=== PATIENT | female | born 1950 | race Caucasian/White ===

== ENCOUNTER 2019-07-24 12:59 | Inpatient (IN) ==
[2019-07-24] MEDS ORDERED: *HR* FentaNYL (PF) 100 MCG/2 ML VIAL IVP ONE (15:08)
[2019-07-24] MEDS ORDERED: Ondansetron 4 MG/2 ML VIAL IVP ONE (15:09)
[2019-07-24] MEDS ORDERED: Naloxone 0.4 MG/ML INJ IVP PRN (16:06)
[2019-07-24] MEDS ORDERED: Ondansetron 4 MG/2 ML VIAL IVP PRN (16:06)
[2019-07-24] MEDS ORDERED: *HR* OxyCODONE/APAP 5/325 TABLET PO PRN (16:37)
[2019-07-24] MEDS ORDERED: *HR* HYDROmorphone (PF) 1 MG/ML SYRINGE IVP ONE (16:58)
[2019-07-25 08:11] LABS: Basophils % 0.6 %; Eosinophils % 0.4 %; Hematocrit 41.6 % (35.3-44.9); Immature Granulocytes % 0.3 % (0-4); Lymphocytes # 2.6 K/mcL (0.6-4.6); Lymphocytes % 35.6 %; Mean Corpuscular HGB Conc 31.7 g/dL (31.6-35.5); Mean Corpuscular Hemoglobin 29.8 pg (28.0-33.3); Mean Corpuscular Volume 93.9 fL (83.0-100.0); Mean Platelet Volume 10.5 fL (9.4-12.4); Monocytes # 0.8 K/mcL (0.0-1.3); Monocytes % 10.7 %; Neutrophils # 3.8 K/mcL (1.6-8.9); Platelet Count 200 K/mcL (140-400); Red Blood Count 4.43 M/mcL (3.82-4.97); Segmented Neutrophils % 52.4 %; White Blood Count 7.2 K/mcL (4.3-11.1)
[2019-07-25 08:26] LABS: BUN/Creatinine Ratio 13 (6-26); Blood Urea Nitrogen 9 mg/dL (8-23); Calcium 9.2 mg/dL (8.6-10.3); Carbon Dioxide 26 mEq/L (23-29); Chloride 105 mEq/L (98-107); Glucose 96 mg/dL (70-105); Magnesium 2.1 mg/dL (1.6-2.6); Osmolality,Calculated 285 (280-300); Phosphorous 3.5 mg/dL (2.7-4.5); Potassium 3.8 mEq/L (3.5-5.1); Sodium 138 mEq/L (136-145); eGFR For African Americans > 60 (> 60); eGFR For Non-African Americans > 60 (> 60)
[2019-07-25] MEDS ORDERED: *HR* FentaNYL (PF) 100 MCG/2 ML VIAL ONE (08:42)
[2019-07-25] MEDS ORDERED: *HR* Propofol 200 MG/20 ML VIAL IVP ONE (08:42)
[2019-07-25] MEDS ORDERED: Dexamethasone 4 MG/ML VIAL ONE (08:42)
[2019-07-25] MEDS ORDERED: Ondansetron 4 MG/2 ML VIAL ONE (08:42)
[2019-07-25] MEDS ORDERED: *HR* Succinylcholine 200 MG/10 ML VIAL IVP ONE (08:42)
[2019-07-25] MEDS ORDERED: Lidocaine -MPF 2% 2 ML VIAL ONE (08:42)
[2019-07-25] MEDS ORDERED: lisinopriL 10 MG TABLET PO SCH (09:00)
[2019-07-25] MEDS ORDERED: Lidocaine HCL 4 ML Topical Solution (Laryng-O-Jet Kit Sterile Pak) TP ONE (09:48)
[2019-07-25] MEDS ORDERED: Acetaminophen IV 1,000 MG/100 ML INFUS..BTL ONE (09:55)
[2019-07-25] MEDS ORDERED: *HR* Midazolam HCl 2 MG/2 ML VIAL ONE (09:56)
[2019-07-25] MEDS ORDERED: *HR* HYDROmorphone PF 0.5 MG/0.5 ML SYRINGE IVP PRN (10:11)
[2019-07-25] MEDS ORDERED: *HR* Promethazine 25 MG/ML VIAL IVP PRN (10:11)
[2019-07-25] MEDS ORDERED: Ondansetron 4 MG/2 ML VIAL IVP ONE (10:11)
[2019-07-25] MEDS ORDERED: *HR* OxyCODONE Immed Rel 5 MG TABLET PO PRN ×2 (10:11→13:02)
[2019-07-25] MEDS ORDERED: Ethanol\\Acetic Acid\\Na Ace\\Ben 1,000 ML IRRIG.SOLN IR ONE (10:29)
[2019-07-25 10:34] LABS: Hematocrit 41.8 % (35.3-44.9); Hemoglobin 13.5 g/dL (11.5-15.4)
[2019-07-25 10:39] LABS: Hemoglobin 13.2 g/dL (11.5-15.4)
[2019-07-25] MEDS ORDERED: EPHEDrine 50 MG/ML VIAL ONE (10:43)
[2019-07-25] MEDS ORDERED: *HR* HYDROMORPHONE 2 MG/ML VIAL ONE (10:55)
[2019-07-25] MEDS ORDERED: Ringers Solution, Lactated 1,000 ML ONE (12:02)
[2019-07-25] MEDS ORDERED: MOM Conc 10 ML UD.LIQ PO PRN (13:02)
[2019-07-25] MEDS ORDERED: Naloxone 0.4 MG/ML INJ IVP PRN (13:02)
[2019-07-25] MEDS ORDERED: *HR* OxyCODONE/APAP 5/325 TABLET PO PRN (13:02)
[2019-07-25] MEDS ORDERED: Ondansetron 4 MG/2 ML VIAL IVP PRN (13:02)
[2019-07-25] MEDS ORDERED: Sennosides 8.6 MG TABLET PO PRN (13:02)
[2019-07-25] MEDS: ceFAZolin 2,000 MG in 0.9 % Sodium Chloride 100 ML IVPB SCH (18:08)
[2019-07-25] MEDS: Ringers Solution, Lactated 1,000 ML IVC SCH (20:13)
[2019-07-26] MEDS: ceFAZolin 2,000 MG in 0.9 % Sodium Chloride 100 ML IVPB SCH (02:01)
[2019-07-26] MEDS: Ringers Solution, Lactated 1,000 ML IVC SCH (02:47)
[2019-07-26 05:12] LABS: Hematocrit 38.1 % (35.3-44.9); Hemoglobin 12.2 g/dL (11.5-15.4)
[2019-07-26 05:32] LABS: BUN/Creatinine Ratio 10 (6-26); Blood Urea Nitrogen 6 mg/dL (8-23); Calcium 9.4 mg/dL (8.6-10.3); Carbon Dioxide 27 mEq/L (23-29); Chloride 104 mEq/L (98-107); Glucose 113 mg/dL (70-105); Osmolality,Calculated 282 (280-300); Potassium 3.8 mEq/L (3.5-5.1); Sodium 137 mEq/L (136-145); eGFR For African Americans > 60 (> 60); eGFR For Non-African Americans > 60 (> 60)
[2019-07-26 06:50] VITALS: BP 147/80
[2019-07-26] MEDS ORDERED: lisinopriL 10 MG TABLET PO SCH (09:00)
== END 2019-07-26 11:54 | disposition home or self-care (01) | DRG 494 ==
LOC: 3ANU
PROVIDERS: ADMIT Internal Medicine; ATTEND Internal Medicine

== ENCOUNTER 2019-10-02 12:29 | Inpatient (IN) ==
[2019-10-02] MEDS ORDERED: Naloxone 0.4 MG/ML INJ IVP PRN (12:31)
[2019-10-02] MEDS ORDERED: Ondansetron 4 MG/2 ML VIAL IVP PRN (12:31)
[2019-10-02] MEDS ORDERED: *HR* HYDROcodone/Acet 5/325 mg TABLET PO PRN (12:31)
[2019-10-02] MEDS ORDERED: 0.9 % Sodium Chloride 1,000 ML ONE (13:26)
[2019-10-02] MEDS ORDERED: *HR* Heparin 5,000 UNIT/ML VIAL IVP PRN ×2 (13:30)
[2019-10-02] MEDS ORDERED: Heparin 25,000 UNIT/250 ML D5W 25,000 UNIT/250 ML IV.SOLN IVC SCH (13:30)
[2019-10-02] MEDS ORDERED: *HR* Heparin 5,000 UNIT/ML VIAL IVP ONE (13:30)
[2019-10-02 13:31] LABS: INR 0.9; Prothrombin Time 10.7 Seconds (9.4-12.1)
[2019-10-02] MEDS: 0.9 % Sodium Chloride 1,000 ML IVC SCH ×2 (13:31→23:19)
[2019-10-02 13:38] LABS: Basophils # 0.1 K/mcL (0.0-0.2); Basophils % 0.9 %; Eosinophils % 0.5 %; Hematocrit 49.1 % (35.3-44.9); Hemoglobin 15.9 g/dL (11.5-15.4); Immature Granulocytes % 0.3 % (0-4); Lymphocytes % 31.3 %; Mean Corpuscular HGB Conc 32.4 g/dL (31.6-35.5); Mean Corpuscular Hemoglobin 29.9 pg (28.0-33.3); Mean Corpuscular Volume 92.5 fL (83.0-100.0); Mean Platelet Volume 9.5 fL (9.4-12.4); Monocytes # 0.4 K/mcL (0.0-1.3); Monocytes % 6.7 %; Neutrophils # 3.9 K/mcL (1.6-8.9); Platelet Count 254 K/mcL (140-400); Red Blood Count 5.31 M/mcL (3.82-4.97); Red Cell Distribution Width 14.1 % (11.5-14.5); Segmented Neutrophils % 60.3 %; White Blood Count 6.4 K/mcL (4.3-11.1)
[2019-10-02 13:43] LABS: Heparin anti-factor XA UFH 0.07 IU/mL (0.30-0.70)
[2019-10-02 13:44] LABS: BUN/Creatinine Ratio 12 (6-26); Blood Urea Nitrogen 7 mg/dL (8-23); Calcium 9.6 mg/dL (8.6-10.3); Carbon Dioxide 23 mEq/L (23-29); Chloride 102 mEq/L (98-107); Glucose 102 mg/dL (70-105); Osmolality,Calculated 276 (280-300); Potassium 4.7 mEq/L (3.5-5.1); Sodium 134 mEq/L (136-145); eGFR For African Americans > 60 (> 60); eGFR For Non-African Americans > 60 (> 60)
[2019-10-02] MEDS: Acetaminophen 325 MG TABLET PO PRN ×2 (15:13→23:18)
[2019-10-02] MEDS ORDERED: Perflutren Lipid Microsphere 1.3 ML in 0.9 % Sodium Chloride 8.7 ML IVP ONE (16:16)
[2019-10-03] MEDS ORDERED: Ondansetron 4 MG/2 ML VIAL ONE (07:13)
[2019-10-03] MEDS ORDERED: Lidocaine -MPF 2% 2 ML VIAL ONE (07:13)
[2019-10-03] MEDS ORDERED: *HR* Heparin 5,000 UNIT/ML VIAL ONE ×2 (07:13→11:50)
[2019-10-03] MEDS ORDERED: *HR* Phenylephrine 10 MG/ML VIAL ONE (07:13)
[2019-10-03] MEDS ORDERED: *HR* Rocuronium Bromide 50 MG/5 ML VIAL ONE ×2 (07:13→09:09)
[2019-10-03] MEDS ORDERED: Lidocaine HCL 4 ML Topical Solution (Laryng-O-Jet Kit Sterile Pak) TP ONE (07:13)
[2019-10-03] MEDS ORDERED: Dexamethasone 4 MG/ML VIAL ONE (07:13)
[2019-10-03] MEDS ORDERED: *HR* Propofol 200 MG/20 ML VIAL IVP ONE (07:14)
[2019-10-03] MEDS ORDERED: Heparin 1,000 UNITS/500 mL 500 ML ONE (07:14)
[2019-10-03] MEDS ORDERED: *HR* Midazolam HCl 2 MG/2 ML VIAL ONE (07:14)
[2019-10-03] MEDS ORDERED: *HR* FentaNYL (PF) 100 MCG/2 ML VIAL ONE (07:14)
[2019-10-03] MEDS ORDERED: *HR* Remifentanil 2 MG VIAL IVP ONE (07:14)
[2019-10-03 07:15] LABS: Chol/HDL Ratio 4.7 (0-4.9)
[2019-10-03] MEDS ORDERED: EPHEDrine 50 MG/ML VIAL ONE (07:22)
[2019-10-03] MEDS ORDERED: Heparin 1,000 UNITS/500 mL 0 ML ONE (07:24)
[2019-10-03] MEDS ORDERED: CeFAZolin Syr 2,000MG/20 ML 2,000 MG/20 ML SYRINGE IVPB ONE (07:43)
[2019-10-03] MEDS ORDERED: Aspirin Enteric Coated 81 MG Tablet PO SCH (09:00)
[2019-10-03] MEDS ORDERED: lisinopriL 10 MG TABLET PO SCH (09:00)
[2019-10-03] MEDS ORDERED: Albumin Human 5% 12.5 GM/250 ML IV.SOLN ONE (09:01)
[2019-10-03] MEDS ORDERED: *HR* Vasopressin 20 UNIT/ML VIAL ONE (09:02)
[2019-10-03] MEDS ORDERED: Sodium Bicarbonate 50 MEQ/50 ML VIAL ONE (09:05)
[2019-10-03 09:31] LABS: Estimated Average Glucose 128 mg/dl
[2019-10-03 09:37] LABS: ABG Base Excess -2 mEq/L (-2 to 3); ABG Chloride 109 mEq/L (98-107); ABG Glucose 109 mg/dL (60-95); ABG HCO3 22 mEq/L (21-27); ABG Oxygen Saturation 100 % (95-98); ABG PCO2 35 mmHg (35-45); ABG PH 7.41 pH Units (7.32-7.45); ABG PO2 248 mmHg (85-104); ABG TCO2 23 mEq/L (20-26)
[2019-10-03] MEDS ORDERED: *HR* Labetalol 20 MG/4 ML SYRINGE IVP ONE (11:17)
[2019-10-03] MEDS ORDERED: Ondansetron 4 MG/2 ML VIAL IVP ONE (11:57)
[2019-10-03] MEDS ORDERED: *HR* Labetalol 20 MG/4 ML SYRINGE IVP PRN (11:57)
[2019-10-03] MEDS ORDERED: *HR* Promethazine 25 MG/ML VIAL IVP PRN (11:57)
[2019-10-03 12:12] LABS: ABG Base Excess -4 mEq/L (-2 to 3); ABG Chloride 107 mEq/L (98-107); ABG Glucose 154 mg/dL (60-95); ABG HCO3 21 mEq/L (21-27); ABG Ionized Calcium 1.45 mmol/L (1.15-1.35); ABG Oxygen Saturation 100 % (95-98); ABG PCO2 36 mmHg (35-45); ABG PH 7.38 pH Units (7.32-7.45); ABG PO2 201 mmHg (85-104); ABG TCO2 22 mEq/L (20-26)
[2019-10-03 12:58] LABS: ABG Base Excess 0 mEq/L (-2 to 3); ABG Chloride 110 mEq/L (98-107); ABG Glucose 139 mg/dL (60-95); ABG HCO3 25 mEq/L (21-27); ABG Ionized Calcium 1.19 mmol/L (1.15-1.35); ABG Oxygen Saturation 100 % (95-98); ABG PCO2 44 mmHg (35-45); ABG PH 7.37 pH Units (7.32-7.45); ABG PO2 252 mmHg (85-104); ABG TCO2 27 mEq/L (20-26)
[2019-10-03] MEDS ORDERED: *HR* HYDROMORPHONE 2 MG/ML VIAL ONE (13:40)
[2019-10-03] MEDS: *HR* HYDROmorphone PF 0.5 MG/0.5 ML SYRINGE IVP PRN ×2 (14:13→14:40)
[2019-10-03] MEDS ORDERED: Naloxone 0.4 MG/ML INJ IVP PRN (16:24)
[2019-10-03] MEDS ORDERED: *HR* Heparin 5,000 UNIT/ML VIAL IVP PRN ×2 (16:24)
[2019-10-03] MEDS ORDERED: Heparin 25,000 UNIT/250 ML D5W 25,000 UNIT/250 ML IV.SOLN IVC SCH (16:24)
[2019-10-03] MEDS ORDERED: *HR* OxyCODONE/APAP 7.5/325 TABLET PO PRN (17:00)
[2019-10-03] MEDS ORDERED: 0.9 % Sodium Chloride 1,000 ML IVC SCH (17:45)
[2019-10-03] MEDS: *HR* HYDROmorphone 2 MG/ML SYRINGE IVP PRN (17:56)
[2019-10-03] MEDS: CeFAZolin 2 GM/120 ML BAG IVPB SCH (20:09)
[2019-10-04] MEDS: *HR* HYDROmorphone 2 MG/ML SYRINGE IVP PRN (00:12)
[2019-10-04 02:10] LABS: Hematocrit 40.7 % (35.3-44.9); Hemoglobin 12.5 g/dL (11.5-15.4); Red Blood Count 4.32 M/mcL (3.82-4.97); White Blood Count 13.7 K/mcL (4.3-11.1)
[2019-10-04 02:11] LABS: Basophils % 0.1 %; Immature Granulocytes % 0.4 % (0-4); Lymphocytes % 6.9 %; Mean Corpuscular HGB Conc 30.7 g/dL (31.6-35.5); Mean Corpuscular Hemoglobin 28.9 pg (28.0-33.3); Mean Corpuscular Volume 94.2 fL (83.0-100.0); Mean Platelet Volume 9.6 fL (9.4-12.4); Monocytes # 1.2 K/mcL (0.0-1.3); Monocytes % 8.4 %; Neutrophils # 11.5 K/mcL (1.6-8.9); Platelet Count 187 K/mcL (140-400); Segmented Neutrophils % 84.2 %
[2019-10-04 02:13] LABS: BUN/Creatinine Ratio 13 (6-26); Blood Urea Nitrogen 10 mg/dL (8-23); Calcium 8.6 mg/dL (8.6-10.3); Carbon Dioxide 24 mEq/L (23-29); Chloride 109 mEq/L (98-107); Glucose 155 mg/dL (70-105); Osmolality,Calculated 292 (280-300); Potassium 4.3 mEq/L (3.5-5.1); Sodium 140 mEq/L (136-145); eGFR For African Americans > 60 (> 60); eGFR For Non-African Americans > 60 (> 60)
[2019-10-04] MEDS: CeFAZolin 2 GM/120 ML BAG IVPB SCH ×2 (04:05→09:04)
[2019-10-04] MEDS ORDERED: Acetaminophen IV 1,000 MG/100 ML INFUS..BTL IVPB ONE (04:36)
[2019-10-04] MEDS: 0.9 % Sodium Chloride 1,000 ML IVC SCH ×2 (08:15→16:15)
[2019-10-04] MEDS: Nicotine 14 MG PATCH.TD24 TD SCH (08:33)
[2019-10-04] MEDS: Acetaminophen IV 1,000 MG/100 ML INFUS..BTL IVPB SCH ×3 (09:10→23:33)
[2019-10-04] MEDS: Ondansetron 4 MG/2 ML VIAL IVP SCH ×3 (12:13→23:35)
[2019-10-04] MEDS ORDERED: Acetaminophen IV 1,000 MG/100 ML INFUS..BTL IVPB SCH (16:00)
[2019-10-04] MEDS: Piperacillin/Tazobactam 3.375 GM in 0.9 % Sodium Chloride Mini Bag 100 ML IVPB SCH ×2 (16:22→23:34)
[2019-10-04] MEDS ORDERED: Levalbuterol Neb 1.25 MG/3 ML IH PRN (19:52)
[2019-10-04] MEDS ORDERED: *HR* Promethazine 25 MG/ML VIAL IVP ONE (19:56)
[2019-10-04] MEDS ORDERED: Metoclopramide 10 MG/2 ML VIAL IVP ONE (20:02)
[2019-10-05] MEDS: 0.9 % Sodium Chloride 1,000 ML IVC SCH (02:11)
[2019-10-05 04:54] LABS: Basophils % 0.2 %; Eosinophils % 0.1 %; Hematocrit 30.4 % (35.3-44.9); Hemoglobin 9.6 g/dL (11.5-15.4); Immature Granulocytes % 0.3 % (0-4); Lymphocytes # 1.8 K/mcL (0.6-4.6); Lymphocytes % 16.6 %; Mean Corpuscular HGB Conc 31.6 g/dL (31.6-35.5); Mean Corpuscular Hemoglobin 29.4 pg (28.0-33.3); Mean Platelet Volume 9.9 fL (9.4-12.4); Monocytes # 0.7 K/mcL (0.0-1.3); Monocytes % 6.7 %; Neutrophils # 8.1 K/mcL (1.6-8.9); Platelet Count 131 K/mcL (140-400); Red Blood Count 3.27 M/mcL (3.82-4.97); Red Cell Distribution Width 14.5 % (11.5-14.5); Segmented Neutrophils % 76.1 %; White Blood Count 10.6 K/mcL (4.3-11.1)
[2019-10-05 05:06] LABS: BUN/Creatinine Ratio 12 (6-26); Blood Urea Nitrogen 8 mg/dL (8-23); Calcium 7.8 mg/dL (8.6-10.3); Carbon Dioxide 27 mEq/L (23-29); Chloride 108 mEq/L (98-107); Glucose 90 mg/dL (70-105); Osmolality,Calculated 286 (280-300); Potassium 3.4 mEq/L (3.5-5.1); Sodium 139 mEq/L (136-145); eGFR For African Americans > 60 (> 60); eGFR For Non-African Americans > 60 (> 60)
[2019-10-05] MEDS: Piperacillin/Tazobactam 3.375 GM in 0.9 % Sodium Chloride Mini Bag 100 ML IVPB SCH ×3 (07:45→23:05)
[2019-10-05] MEDS: Acetaminophen IV 1,000 MG/100 ML INFUS..BTL IVPB SCH (07:46)
[2019-10-05] MEDS: Ondansetron 4 MG/2 ML VIAL IVP SCH (07:49)
[2019-10-05] MEDS: Nicotine 14 MG PATCH.TD24 TD SCH (07:50)
[2019-10-05] MEDS ORDERED: Aminoglycoside Consult 1 EACH MC ONE (10:16)
[2019-10-05] MEDS: Potassium Chloride 40 MEQ in D5% in 0.45% NACL 1,000 ML IVC SCH ×2 (10:22→23:05)
[2019-10-06 04:56] LABS: Basophils % 0.3 %; Eosinophils # 0.1 K/mcL (0.0-0.6); Eosinophils % 0.8 %; Hematocrit 30.2 % (35.3-44.9); Hemoglobin 9.7 g/dL (11.5-15.4); Immature Granulocytes % 0.3 % (0-4); Lymphocytes # 1.4 K/mcL (0.6-4.6); Lymphocytes % 15.6 %; Mean Corpuscular HGB Conc 32.1 g/dL (31.6-35.5); Mean Corpuscular Hemoglobin 29.7 pg (28.0-33.3); Mean Corpuscular Volume 92.4 fL (83.0-100.0); Mean Platelet Volume 9.7 fL (9.4-12.4); Monocytes # 0.6 K/mcL (0.0-1.3); Neutrophils # 7.1 K/mcL (1.6-8.9); Platelet Count 141 K/mcL (140-400); Red Blood Count 3.27 M/mcL (3.82-4.97); Red Cell Distribution Width 14.6 % (11.5-14.5); White Blood Count 9.2 K/mcL (4.3-11.1)
[2019-10-06 05:17] LABS: BUN/Creatinine Ratio 10 (6-26); Blood Urea Nitrogen 5 mg/dL (8-23); Calcium 7.8 mg/dL (8.6-10.3); Carbon Dioxide 26 mEq/L (23-29); Chloride 106 mEq/L (98-107); Glucose 113 mg/dL (70-105); Osmolality,Calculated 284 (280-300); Potassium 3.5 mEq/L (3.5-5.1); Sodium 138 mEq/L (136-145); eGFR For African Americans > 60 (> 60); eGFR For Non-African Americans > 60 (> 60)
[2019-10-06 05:41] LABS: Folate 11.3 ng/mL (3.0-16.0)
[2019-10-06 05:43] LABS: Ferritin 292 ng/mL (10-120); Iron < 10 mcg/dL (50-170); Transferrin 129 mg/dL (203-362)
[2019-10-06] MEDS: Piperacillin/Tazobactam 3.375 GM in 0.9 % Sodium Chloride Mini Bag 100 ML IVPB SCH ×3 (07:25→23:18)
[2019-10-06] MEDS: Nicotine 14 MG PATCH.TD24 TD SCH (07:58)
[2019-10-06] MEDS: Potassium Chloride 40 MEQ in D5% in 0.45% NACL 1,000 ML IVC SCH ×2 (10:12→23:17)
[2019-10-06] MEDS ORDERED: Chloraseptic Spray 177 ML BOTTLE MM PRN (13:27)
[2019-10-07 03:50] LABS: Basophils % 0.3 %; Eosinophils # 0.2 K/mcL (0.0-0.6); Eosinophils % 2.5 %; Hemoglobin 9.9 g/dL (11.5-15.4); Immature Granulocytes % 0.8 % (0-4); Lymphocytes # 1.5 K/mcL (0.6-4.6); Lymphocytes % 19.4 %; Mean Corpuscular HGB Conc 31.9 g/dL (31.6-35.5); Mean Corpuscular Hemoglobin 29.6 pg (28.0-33.3); Mean Corpuscular Volume 92.5 fL (83.0-100.0); Mean Platelet Volume 9.9 fL (9.4-12.4); Monocytes # 0.6 K/mcL (0.0-1.3); Monocytes % 7.2 %; Neutrophils # 5.3 K/mcL (1.6-8.9); Platelet Count 174 K/mcL (140-400); Red Blood Count 3.35 M/mcL (3.82-4.97); Red Cell Distribution Width 14.4 % (11.5-14.5); Segmented Neutrophils % 69.8 %; White Blood Count 7.6 K/mcL (4.3-11.1)
[2019-10-07 04:03] LABS: BUN/Creatinine Ratio 6 (6-26); Blood Urea Nitrogen 3 mg/dL (8-23); Calcium 7.9 mg/dL (8.6-10.3); Carbon Dioxide 24 mEq/L (23-29); Chloride 108 mEq/L (98-107); Glucose 114 mg/dL (70-105); Osmolality,Calculated 281 (280-300); Potassium 3.9 mEq/L (3.5-5.1); Sodium 137 mEq/L (136-145); eGFR For African Americans > 60 (> 60); eGFR For Non-African Americans > 60 (> 60)
[2019-10-07] MEDS: Piperacillin/Tazobactam 3.375 GM in 0.9 % Sodium Chloride Mini Bag 100 ML IVPB SCH ×3 (08:05→23:17)
[2019-10-07] MEDS: Potassium Chloride 40 MEQ in D5% in 0.45% NACL 1,000 ML IVC SCH (10:30)
[2019-10-07] MEDS: Nicotine 14 MG PATCH.TD24 TD SCH (10:31)
[2019-10-07] MEDS ORDERED: Saline Nasal Spray 44 ML BOTTLE NS PRN (22:18)
[2019-10-08 03:43] LABS: Basophils % 0.4 %; Eosinophils # 0.2 K/mcL (0.0-0.6); Eosinophils % 3.1 %; Hematocrit 31.3 % (35.3-44.9); Hemoglobin 10.1 g/dL (11.5-15.4); Immature Granulocytes % 0.4 % (0-4); Lymphocytes # 1.6 K/mcL (0.6-4.6); Lymphocytes % 23.3 %; Mean Corpuscular HGB Conc 32.3 g/dL (31.6-35.5); Mean Corpuscular Hemoglobin 29.4 pg (28.0-33.3); Mean Platelet Volume 9.5 fL (9.4-12.4); Monocytes # 0.5 K/mcL (0.0-1.3); Monocytes % 7.9 %; Neutrophils # 4.4 K/mcL (1.6-8.9); Platelet Count 208 K/mcL (140-400); Red Blood Count 3.44 M/mcL (3.82-4.97); Red Cell Distribution Width 14.2 % (11.5-14.5); Segmented Neutrophils % 64.9 %; White Blood Count 6.8 K/mcL (4.3-11.1)
[2019-10-08 04:03] LABS: BUN/Creatinine Ratio 6 (6-26); Blood Urea Nitrogen 3 mg/dL (8-23); Calcium 8.4 mg/dL (8.6-10.3); Carbon Dioxide 24 mEq/L (23-29); Chloride 106 mEq/L (98-107); Glucose 96 mg/dL (70-105); Osmolality,Calculated 278 (280-300); Potassium 3.6 mEq/L (3.5-5.1); Sodium 136 mEq/L (136-145); eGFR For African Americans > 60 (> 60); eGFR For Non-African Americans > 60 (> 60)
[2019-10-08] MEDS: Nicotine 14 MG PATCH.TD24 TD SCH (08:00)
[2019-10-08] MEDS: Piperacillin/Tazobactam 3.375 GM in 0.9 % Sodium Chloride Mini Bag 100 ML IVPB SCH (08:00)
[2019-10-08] MEDS: cilostazoL 100 MG TABLET PO SCH (20:09)
[2019-10-08] MEDS: Lactobacillus 1 EACH CAP.SPRINK PO SCH (20:09)
[2019-10-09 04:54] LABS: Basophils % 0.6 %; Eosinophils # 0.2 K/mcL (0.0-0.6); Eosinophils % 3.1 %; Hematocrit 30.9 % (35.3-44.9); Hemoglobin 9.8 g/dL (11.5-15.4); Immature Granulocytes % 0.8 % (0-4); Lymphocytes # 1.8 K/mcL (0.6-4.6); Lymphocytes % 28.1 %; Mean Corpuscular HGB Conc 31.7 g/dL (31.6-35.5); Mean Corpuscular Hemoglobin 28.7 pg (28.0-33.3); Mean Corpuscular Volume 90.6 fL (83.0-100.0); Mean Platelet Volume 9.7 fL (9.4-12.4); Monocytes # 0.7 K/mcL (0.0-1.3); Monocytes % 10.5 %; Neutrophils # 3.7 K/mcL (1.6-8.9); Platelet Count 262 K/mcL (140-400); Red Blood Count 3.41 M/mcL (3.82-4.97); Red Cell Distribution Width 14.5 % (11.5-14.5); Segmented Neutrophils % 56.9 %; White Blood Count 6.6 K/mcL (4.3-11.1)
[2019-10-09 05:14] LABS: BUN/Creatinine Ratio 8 (6-26); Blood Urea Nitrogen 4 mg/dL (8-23); Calcium 8.4 mg/dL (8.6-10.3); Carbon Dioxide 25 mEq/L (23-29); Chloride 106 mEq/L (98-107); Glucose 82 mg/dL (70-105); Osmolality,Calculated 282 (280-300); Potassium 3.4 mEq/L (3.5-5.1); Sodium 138 mEq/L (136-145); eGFR For African Americans > 60 (> 60); eGFR For Non-African Americans > 60 (> 60)
[2019-10-09] MEDS: cilostazoL 100 MG TABLET PO SCH (08:33)
[2019-10-09] MEDS: Nicotine 14 MG PATCH.TD24 TD SCH (08:33)
[2019-10-09] MEDS: Lactobacillus 1 EACH CAP.SPRINK PO SCH (08:34)
[2019-10-09 11:34] VITALS: BP 126/65
== END 2019-10-09 13:08 | disposition home or self-care (01) | DRG 269 ==
LOC: 2NNU → SUATTDRO 12:35 → 2NNU 12:43
PROVIDERS: ADMIT Internal Medicine; ATTEND Internal Medicine

== ENCOUNTER 2020-05-14 09:47 | Observation (INO) ==
[2020-05-14] MEDS ORDERED: Ringers Solution, Lactated 1,000 ML IVC SCH ×2 (10:15→19:45)
[2020-05-14] MEDS ORDERED: CeFAZolin Syr 2,000MG/20 ML 2,000 MG/20 ML SYRINGE IVPB ONE (10:15)
[2020-05-14] MEDS ORDERED: *HR* Propofol 200 MG/20 ML VIAL IVP ONE (10:21)
[2020-05-14] MEDS ORDERED: Lidocaine -MPF 2% 2 ML VIAL ONE (10:22)
[2020-05-14] MEDS ORDERED: Ondansetron 4 MG/2 ML VIAL ONE (10:22)
[2020-05-14] MEDS ORDERED: *HR* HYDROmorphone PF 0.5 MG/0.5 ML SYRINGE IVP PRN (10:46)
[2020-05-14] MEDS ORDERED: Ondansetron 4 MG/2 ML VIAL IVP PRN ×2 (10:46→19:34)
[2020-05-14] MEDS ORDERED: *HR* Midazolam HCl 2 MG/2 ML VIAL ONE (11:15)
[2020-05-14] MEDS ORDERED: *HR* FentaNYL (PF) 100 MCG/2 ML VIAL ONE (11:15)
[2020-05-14] MEDS ORDERED: *HR* HYDROMORPHONE 2 MG/ML VIAL ONE (12:08)
[2020-05-14] MEDS ORDERED: Ethanol\\Acetic Acid\\Na Ace\\Ben 1,000 ML IRRIG.SOLN IR ONE (12:53)
[2020-05-14] MEDS ORDERED: Vancomycin 1,000 MG VIAL ONE (13:11)
[2020-05-14] MEDS ORDERED: MOM Conc 10 ML UD.LIQ PO PRN (19:34)
[2020-05-14] MEDS ORDERED: Sennosides 8.6 MG TABLET PO PRN (19:34)
[2020-05-14] MEDS ORDERED: *HR* OxyCODONE/APAP 5/325 TABLET PO PRN (19:42)
[2020-05-14] MEDS ORDERED: *HR* OxyCODONE Immed Rel 5 MG TABLET PO PRN (19:42)
[2020-05-14] MEDS ORDERED: Naloxone 0.4 MG/ML INJ IVP PRN (19:42)
[2020-05-14] MEDS: cilostazoL 100 MG TABLET PO SCH (22:02)
[2020-05-14] MEDS: CeFAZolin 2 GM/120 ML BAG IVPB SCH (22:03)
[2020-05-15 01:45] LABS: Hematocrit 33.3 % (35.3-44.9)
[2020-05-15 01:46] LABS: Hemoglobin 10.8 g/dL (11.5-15.4)
[2020-05-15 02:06] LABS: BUN/Creatinine Ratio 16 (6-26); Blood Urea Nitrogen 10 mg/dL (8-23); Calcium 8.4 mg/dL (8.6-10.3); Carbon Dioxide 23 mEq/L (23-29); Chloride 104 mEq/L (98-107); Glucose 130 mg/dL (70-105); Osmolality,Calculated 279 (280-300); Potassium 4.2 mEq/L (3.5-5.1); Sodium 134 mEq/L (136-145); eGFR For African Americans > 60 (> 60); eGFR For Non-African Americans > 60 (> 60)
[2020-05-15] MEDS: CeFAZolin 2 GM/120 ML BAG IVPB SCH (05:02)
[2020-05-15 07:16] VITALS: BP 118/74
[2020-05-15] MEDS: cilostazoL 100 MG TABLET PO SCH (07:59)
[2020-05-15] MEDS ORDERED: lisinopriL 10 MG TABLET PO SCH (09:00)
== END 2020-05-15 14:19 | disposition home or self-care (01) ==
LOC: SAMDAYPAV 09:47 → 3NENU 09:47 → SAMDAYPAV 18:19 → 3NENU 18:48
PROVIDERS: ADMIT Orthopaedic Surgery; ATTEND Orthopaedic Surgery